=== PATIENT | male | born 1970 | race Caucasian/White ===

== ENCOUNTER 2023-09-01 18:04 | Emergency (ER) | payer MEDICAID, SELFPAY ==
[2023-09-01 18:00] VITALS: BP 147/88; PULSE 130; RESP 20; TEMP 37.1; O2SAT 100
[2023-09-01 19:13] VITALS: BP 166/106; PULSE 137; RESP 14; TEMP 37.2; O2SAT 97
--- NOTE | 2023-09-01 19:16 | ED.GENADULT ---
HPI - General Adult General Chief complaint: Unspecified Stated complaint: Low back pain, heel pain, toe pain, infected toe Time Seen by Provider: 09/01/23 19:05 History of Present Illness HPI narrative: Patient is a 53-year-old gentleman who presents emergency department with chief complaint of I am burning from the inside out. Patient reports that he was injected with drugs but does not know what drugs he was injected with the patient was brought in by EMS the patient denies suicidal or homicidal ideation reports that he does not want anything other than some marijuana and wants a cold shower Review of Systems Review of Systems: A 10 system review of systems was completed on the patient and is negative except for what is stated in the HPI. Nursing and ancillary documentation was reviewed. Exam Narrative: GENERAL: anxious, well-nourished, and in no acute distress. HEAD: Normocephalic, atraumatic. EYES: PERRLA and EOMI. ENT: Nares clear, no rhinorrhea or epistaxis. Mucous membranes moist. NECK: Supple. CHEST: Clear to auscultation. No respiratory distress. HEART: tachycardic rate and rhythm. No murmur heard. Normal peripheral pulses. ABDOMEN: Soft, nontender, nondistended, normal active bowel sounds. EXTREMITIES: Normal range of motion. No edema. SKIN: Warm, dry, no rash. NEURO: No focal deficits. Alert and oriented x3. denies suicidal or homicidal ideation ambulates with a stable gait PSYCH: anxious mood and affect. Course Vital Signs Vital signs: Vital Signs Temperature 37.1 C 09/01/23 18:00 Pulse Rate 130 H 09/01/23 18:00 Respiratory Rate 20 09/01/23 18:00 Blood Pressure 147/88 H 09/01/23 18:00 Pulse Oximetry 100 09/01/23 18:00 Oxygen Delivery Room Air 09/01/23 18:00 Temperature 37.2 C 09/01/23 19:13 Pulse Rate 137 H 09/01/23 19:13 Respiratory Rate 14 09/01/23 19:13 Blood Pressure 166/106 H 09/01/23 19:13 Pulse Oximetry 97 09/01/23 19:13 Oxygen Delivery Room Air 09/01/23 18:00 Medical Decision Making [facility] Narrative Medical decision making narrative: differential diagnosis includes substance abuse, psychiatric disease, patient was offered medical screening exam to determine there is no emergency medical condition present. Patient currently is alert and oriented x4 reporting no thoughts of harm to self or others patient this time has chosen to refuse medical screening exam and will leave against medical advice Vital Signs Vital Signs: Vital Signs Temperature 37.1 C 09/01/23 18:00 Pulse Rate 130 H 09/01/23 18:00 Respiratory Rate 20 09/01/23 18:00 Blood Pressure 147/88 H 09/01/23 18:00 Pulse Oximetry 100 09/01/23 18:00 Oxygen Delivery Room Air 09/01/23 18:00 Temperature 37.2 C 09/01/23 19:13 Pulse Rate 137 H 09/01/23 19:13 Respiratory Rate 14 09/01/23 19:13 Blood Pressure 166/106 H 09/01/23 19:13 Pulse Oximetry 97 09/01/23 19:13 Oxygen Delivery Room Air 09/01/23 18:00 Discharge Plan Discharge Clinical Impression: Substance abuse Patient Disposition: Left Against Medical Advice Condition: Stable Follow-up/Referrals: Ariel,Chirag Wu MD [Primary Care Provider] - Time of Disposition: 19:20
--- NOTE | 2023-09-01 19:21 | PC.NURSE ---
in room with edp. pt is refusing to answer edp questions, uncooperative at this time. pt states he needs to leave and is refusing to be assessed by edp. pt pulling of monitor leads and refusing to keep them on. pt agrees to sign AMA paperwork, stating he does not want to stay.
== END 2023-09-01 19:20 | disposition left against medical advice (07) ==
PROVIDERS: Emergency Provider Emergency Medicine; PCP Orthopaedic Surgery Orthopaedic Trauma
DX: F19.10 Other psychoactive substance abuse, uncomplicated (principal)
CPT/HCPCS: 99281

== ENCOUNTER 2023-09-02 00:46 | Inpatient (IN) | payer MEDICAID, SELFPAY ==
[2023-09-02] VITALS (14 sets, daily range): BP systolic 111–147; BP diastolic 68–120; PULSE 68–112; RESP 12–20; TEMP 36.1–36.5; O2SAT 95–100; BMI 31.1
--- NOTE | ~2023-09-02 | XR_ITS ---
Left foot Technique: AP, oblique, and lateral views were obtained. Clinical History: Posterior heel wound Findings: No acute fracture or dislocation is seen. Osseous alignment is anatomic. Joint spaces are p reserved without erosive or degenerative change. Soft tissues are unremarkable. Impression: Unremarkable left foot radiographs. Reviewed, dictated and finalized at [facility]. Impression: Unremarkable left foot radiographs.
--- NOTE | ~2023-09-02 | CT_ITS ---
Non-contrast Head CT History: Altered mental status Technique: Axial non-contrast imaging of the brain was performed. Dose reduction technique was used on this scan by utilizing automated exposure control and iterative reconstruction technique. The dose -length product (DLP) was 681.00 mGy-cm. Findings: There is no evidence of intracranial hemorrhage, mass lesion, or acute infarct. Brain par enchyma appears normal. The ventricles and subarachnoid spaces are normal in size. The calvarium ap pears normal. The visualized paranasal sinuses and mastoid air cells are clear. Impression: No significant abnormality seen. Reviewed, dictated and finalized at location . Impression: No significant abnormality seen.
--- NOTE | ~2023-09-02 | XR_ITS ---
Portable chest x-ray Comparison: None Clinical History: Altered mental status Findings: There is central congestive change and associated mild minimal pulmonary edema pattern. C ardiomediastinal silhouette is mildly prominent, possibly due to AP technique. Bones and soft tissues are unremarkable. Impression: Central congestive change and minimal pulmonary edema pattern. Reviewed, dictated and finalized at [facility]. Impression: Central congestive change and minimal pulmonary edema pattern.
--- NOTE | 2023-09-02 00:56 | ED.GENADULT ---
HPI - General Adult General Chief complaint: Wound/Laceration Stated complaint: wound to ankle Time Seen by Provider: 09/02/23 00:56 History of Present Illness HPI narrative: 53-year-old male presents to the emergency department via EMS for wounds to his feet and concerns that he might . Patient was seen in our emergency department earlier today for burning from the inside out. Stated that he was injected with drugs with not know which drugs he was injected with. He left against medical advice after not wanting any treatment. He reports again today because he states he does not want to and he does not want to see an christopher. When I asked him if there is anything medically wrong, he says that his feet are rotting. He does have sores to his feet but is unable to tell me how long they have been there. He denies past medical history or alcohol use. He admits to using marijuana and ICE but is unable to tell me his last use. Denies fever, n/v, SI and HI. Just after gathering the prior information, patient spontaneously stopped answering questions and became tearful. He remained alert and tracking his eyes however was refusing to speak and answer questions. Related Data Allergies Allergy/AdvReac Type Severity Reaction Status Date / Time No Known Allergies Allergy Verified 09/02/23 02:51 Review of Systems Review of Systems: ROS unobtainable: Yes unobtainable due to mental status Exam Narrative: GENERAL: Well-appearing, well-nourished, and in no acute distress. HEAD: Normocephalic, atraumatic. EYES: PERRLA and EOMI. ENT: Nares clear, no rhinorrhea or epistaxis. Mucous membranes moist. NECK: Supple. CHEST: Clear to auscultation. No respiratory distress. HEART: Regular rate and rhythm. No murmur heard. Normal peripheral pulses. ABDOMEN: Soft, nontender, nondistended, normal active bowel sounds. EXTREMITIES: Normal range of motion. No edema. SKIN: Approximately 1.5 cm annular ulceration to the left medial foot with a purulent base and surrounding warmth and erythema. Few superficial ulcerations with erythema overlying the right Achilles tendon, no drainage. NEURO: No focal deficits. Moving all extremities spontaneously PSYCH: Clinically intoxicated, uncooperative, tearful. During history taking, spontaneously stopped responding. He remains awake and tracking with his eyes. Denies SI or HI. Course Vital Signs Vital signs: Vital Signs Temperature 36.4 C 09/02/23 00:47 Pulse Rate 112 H 09/02/23 00:47 Respiratory Rate 18 09/02/23 00:47 Blood Pressure 147/120 H 09/02/23 00:47 Pulse Oximetry 100 09/02/23 00:47 Oxygen Delivery Room Air 09/02/23 00:47 Temperature 36.4 C 09/02/23 00:47 Pulse Rate 73 09/02/23 02:58 Respiratory Rate 12 09/02/23 02:58 Blood Pressure 125/87 09/02/23 02:44 Pulse Oximetry 100 09/02/23 02:58 Oxygen Delivery Room Air 09/02/23 00:47 Medical Decision Making MDM Narrative Medical decision making narrative: 53-year-old male presents to the emergency department via EMS for concerns of not wanting to and ?rotting feet?. During history taking, patient spontaneously stopped answering questions, became tearful and uncooperative. He remained alert and tracking with his eyes. He would not answer questions including orientation questions. I could not evaluate patient's mental status, and therefore he could not refuse care. Altered mental status workup initiated. Exam is also concerning for infected ulceration to the right medial foot. CBC with leukocytosis of 11.9. Chemistries remarkable for potassium of 3.2, no other electrolyte derangements. Phos and Mag are normal. Potassium intravenously repleted. CK is elevated to 2426 with elevations in AST and ALT consistent with rhabdomyolysis. UA with trace ketones. TSH within normal limits. Lactic acid normal. ETOH level less than 10. EKG reveals sinus rhythm without ischemic changes. Troponin undetectabl
--- NOTE | 2023-09-02 01:15 | ECG_ITS ---
SEE SCANNED COPY FOR CONFIRMED REPORT MTDD
[2023-09-02 01:35] LABS: Basophils Absolute Auto 0.1 K/mm3 (0.0-0.1); Basophils Percent Auto 0.5 % (0.2-1.2); Eosinophils Absolute Auto 0.1 K/mm3 (0-0.3); Eosinophils Percent Auto 0.5 % (0-4.4); Hematocrit 39.3 % (42.0-52.0); Immature Granulocyte Absolute 0.03 K/mm3 (0.00-0.031); Immature Granulocyte Percent A 0.3 % (0-0.5); Lymphocytes Absolute Auto 2.53 K/mm3 (0.9-3.2); Lymphocytes Percent Auto 21.2 % (18.3-44.2); Mean Corpuscular HGB Conc 33.1 g/dl (32-36); Mean Corpuscular Hemoglobin 31.6 pg (26-34); Mean Corpuscular Volume 95.6 fl (80-100); Mean Platelet Volume 9.2 fl (7.4-10.4); Monocytes Absolute Auto 1.3 K/mm3 (0.1-0.6); Monocytes Percent Auto 11.2 % (2.6-8.5); Neutrophils Absolute Auto 7.9 K/mm3 (1.3-6.7); Neutrophils Percent Auto 66.3 % (45.5-73.1); Platelet Count Result 312 k/mm3 (150-375); Red Blood Count 4.11 M/mm3 (4.6-6.20); Red Cell Distribution Width 12.6 % (11.5-14.5); White Blood Count 11.9 K/mm3 (4.5-10.0)
[2023-09-02 01:44] LABS: Acetaminophen < 10 ug/mL (10-30); Ethanol < 10 mg/dL (<10); Salicylate < 1.0 mg/dL (2-20)
[2023-09-02 01:46] LABS: INR 1.1; Prothrombin Time 14.8 Seconds (11.1-14.7)
[2023-09-02 01:47] LABS: Partial Thromboplastin Time 34.9 Seconds (22.3-36.8)
[2023-09-02 02:01] LABS: Alanine Aminotransferase 63 U/L (6-50); Albumin Level 4.5 g/dL (3.5-5.1); Alkaline Phosphatase 61 U/L (38-126); Anion Gap 11 mmol/L (4-12); Aspartate Amino Transferase 86 U/L (17-59); Bilirubin,Total 1.5 mg/dL (0.2-1.3); Blood Urea Nitrogen 23 mg/dL (9-20); Calcium 9.7 mg/dL (8.4-10.2); Carbon Dioxide 25 mmol/L (22-30); Chloride 105 mmol/L (98-107); Estimated Glomerular Filt Rate > 60; Glucose 122 mg/dL (65-110); Potassium 3.2 mmol/L (3.4-5.0); Sodium 141 mmol/L (137-145); Troponin I < 0.012 ng/mL (0.000-0.034)
[2023-09-02 02:14] LABS: Creatine Kinase 2426 U/L (55-170)
[2023-09-02 02:19] LABS: Thyroid Stimulating Hormone 0.962 uIU/mL (0.465-4.680)
[2023-09-02 02:25] LABS: Appearance Urine Clear (Clear); Bacteria Urine None Seen /hpf; Bilirubin Urine Negative (Negative); Blood Urine Negative (Negative); Color Urine Dark Yellow (Yellow); Glucose Urine UA Negative (Negative); Ketones Urine Trace mg/dL (Negative); Leukocyte Esterase Ur Negative LEU/UL (Negative); Nitrate Urine Negative (Negative); Non Pathogenic Casts 0-2; Protein Urine 1+ mg/dL (Negative); RBC Urine 0-2 /hpf (0-2); Squamous Epithelial Cell Urine None Seen /hpf (Few); WBC Urine 0-5 /hpf (0-3); pH Urine 5.5 (5.0-9.0)
[2023-09-02] MEDS: SODIUM CHLORIDE 0.9% IV 1,000 ML 999 ML IV CONT ×3 (02:26→04:21)
[2023-09-02 02:31] LABS: Add Urine Microscopic? YES; Specific Grav Ur 1.034 (1.001-1.035)
[2023-09-02 02:32] LABS: Magnesium 2.2 mg/dL (1.6-2.3); Phosphorus 3.2 mg/dL (2.5-4.5)
[2023-09-02 02:36] LABS: Barbiturate Screen Urine Negative (Negative)
[2023-09-02] MEDS: PIPERACILLN/TAZ 3.375GM/NS50ML 3.375 GM/50 ML BAG IVPB ×4 (02:52→20:27)
[2023-09-02 02:55] LABS: Cannabinoid Screen Urine Positive (Negative); Cocaine Screen Urine Negative (Negative); Methadone Screen Urine Negative (Negative); Opiate Screen Urine Negative (Negative); Phencyclidine Screen Urine Negative (Negative)
[2023-09-02 03:04] LABS: Benzodiazepines Screen Urine Negative (Negative)
[2023-09-02 03:05] LABS: Amphetamine Screen Urine Positive (Negative)
[2023-09-02] MEDS: KCL 20 MEQ/SW 100 ML 100 ML 50 MEQ IVPB (03:08)
--- NOTE | 2023-09-02 04:04 | PM.IMHP ---
H&P: HPI History of Present Illness Date/Time: 09/02/23 04:04 Chief Complaint: wound Narrative: This is a 53-year-old male with past medical history significant for use of methamphetamines patient presented to the emergency room stating that his feet were rotting after initial presentation left AMA to come back later patient is belligerent and does not answer questions. it is noted the patient did a heavy load of methamphetamine prior to presentation to emergency room. Preliminary workup was significant for an elevated CK.Patient has been placed in observation for further evaluation management and treatment. Non-contrast Head CT History: Altered mental status Technique:? Axial non-contrast imaging of the brain was performed. Dose reduction technique was used on this scan by utilizing automated exposure control and iterative reconstruction technique. The dose-length product (DLP) was 681.00 mGy-cm. Findings:? There is no evidence of intracranial hemorrhage, mass lesion, or acute infarct.? Brain parenchyma appears normal.? The ventricles and subarachnoid spaces are normal in size.? The calvarium appears normal.? The visualized paranasal sinuses and mastoid air cells are clear. Impression: No significant abnormality seen. Portable chest x-ray Comparison: None Clinical History: Altered mental status Findings:? There is central congestive change and associated mild minimal pulmonary edema pattern.? Cardiomediastinal silhouette is mildly prominent, possibly due to AP technique. Bones and soft tissues are unremarkable. ? Impression: ? Central congestive change and minimal pulmonary edema pattern. Left foot Technique: AP, oblique, and lateral views were obtained. Clinical History: Posterior heel wound Findings: No acute fracture or dislocation is seen. Osseous alignment is anatomic. Joint spaces are preserved without erosive or degenerative change. Soft tissues are unremarkable. Impression: Unremarkable left foot radiographs. Review of Systems Review of Systems: ROS unobtainable: Yes other ( patient refuses to answer questions) [facility] Social History Social History Smoking status: Current every day smoker Tobacco type: cigarettes Alcohol intake: former Substance use type: marijuana, amphetamines and painkillers Do You Feel Safe in your Home?: No Lack of Transportation: YES Lack of Food: Often True Current Housing: I Do Not Have Housing Concerned About Future Housing: YES Difficulty Paying Gas/Electric Bills: YES Difficulty Paying for Meds: YES Currently Unemployed: YES Education: High School Diploma/GED Difficulty w/ Childcare or Family Care: No Spiritual care concerns: No Meds Home Medications and Allergies Home Medications Medication Instructions Recorded Confirmed Type No Home Medications 09/02/23 09/02/23 History Allergies Allergy/AdvReac Type Severity Reaction Status Date / Time No Known Allergies Allergy Verified 09/02/23 02:51 Vital Signs Vital Signs - 24 hr 09/02/23 00:47 09/02/23 02:23 09/02/23 02:44 Temperature 97.6 F Pulse Rate 112 H 91 Respiratory Rate 18 12 Blood Pressure 147/120 H 125/87 Pulse Oximetry 100 95 Oxygen Delivery Room Air 09/02/23 02:58 Temperature Pulse Rate 73 Respiratory Rate 12 Blood Pressure Pulse Oximetry 100 Oxygen Delivery Exam Narrative: patient is laying in a stretcher Const: General: comfortable, no acute distress, well developed, average body habitus and other ( patient refuses to answer questions his seems to be sleeping) Nutritional Appearance: average body habitus HENMT: Head: normal to inspection, normocephalic and atraumatic Ears: hearing grossly normal bilaterally Face/Nose/Sinus: normal facial exam Face and sinus: normal facial exam Eyes: General: appearance normal, both eyes and all related stru
[2023-09-02] MEDS: SODIUM CHLORIDE 0.9% IV 1,000 ML 125 ML IV CONT ×2 (05:09→18:33)
--- NOTE | 2023-09-02 05:09 | ADMGEN ---
This patient, Neo Storey, was admitted to Medical Room 259-01. Patient/family oriented to hospital policies and general routines including ID bracelet, bed and alarms, visiting hours, pain management, procedures, bathroom and other care routines, personal items, smoking policy, room service/diet, and visiting hours. Information on how to activate the Rapid Response Team has been discussed. Patient/Family are encouraged to report perceived risks to care and to ask questions if they do not understand what they are told or what they should do.
--- NOTE | 2023-09-02 06:06 | PC.NURSE ---
went through patient belongings with rn house supervisor and security. pint of fireball whiskey, utility tool, pack of naomi cigs, ozone infused THC cartridges comfiscated and given to security to store until patient discharged.
[2023-09-02 06:25] LABS: Basophils Percent Auto 0.5 % (0.2-1.2); Eosinophils Absolute Auto 0.1 K/mm3 (0-0.3); Eosinophils Percent Auto 0.7 % (0-4.4); Hematocrit 35.4 % (42.0-52.0); Hemoglobin 11.5 g/dL (14.0-18.0); Immature Granulocyte Absolute 0.03 K/mm3 (0.00-0.031); Immature Granulocyte Percent A 0.4 % (0-0.5); Lymphocytes Absolute Auto 1.82 K/mm3 (0.9-3.2); Lymphocytes Percent Auto 22.5 % (18.3-44.2); Mean Corpuscular HGB Conc 32.5 g/dl (32-36); Mean Corpuscular Hemoglobin 31.6 pg (26-34); Mean Corpuscular Volume 97.3 fl (80-100); Mean Platelet Volume 9.1 fl (7.4-10.4); Monocytes Absolute Auto 0.9 K/mm3 (0.1-0.6); Monocytes Percent Auto 11.3 % (2.6-8.5); Neutrophils Absolute Auto 5.2 K/mm3 (1.3-6.7); Neutrophils Percent Auto 64.6 % (45.5-73.1); Platelet Count Result 250 k/mm3 (150-375); Red Blood Count 3.64 M/mm3 (4.6-6.20); Red Cell Distribution Width 12.7 % (11.5-14.5); White Blood Count 8.1 K/mm3 (4.5-10.0)
[2023-09-02 06:35] LABS: Alanine Aminotransferase 49 U/L (6-50); Albumin Level 3.6 g/dL (3.5-5.1); Alkaline Phosphatase 48 U/L (38-126); Anion Gap 5 mmol/L (4-12); Aspartate Amino Transferase 64 U/L (17-59); Bilirubin,Total 1.3 mg/dL (0.2-1.3); Blood Urea Nitrogen 19 mg/dL (9-20); Calcium 8.6 mg/dL (8.4-10.2); Carbon Dioxide 26 mmol/L (22-30); Chloride 109 mmol/L (98-107); Estimated CRCL calculation 124 ml/min; Estimated Glomerular Filt Rate > 60; Glucose 112 mg/dL (65-110); Potassium 3.5 mmol/L (3.4-5.0); Sodium 140 mmol/L (137-145)
[2023-09-02 06:40] LABS: Creatine Kinase 1222 U/L (55-170)
--- NOTE | 2023-09-02 08:43 | PM.IMPN ---
Progress Note: A&P Assessment and Plan (1) Methamphetamine abuse: Code(s): F15.10 - Other stimulant abuse, uncomplicated Status: Acute Assessment and Plan: supportive care unsure last time he used meth- states it was only little bit discussed with home health care physician- will need rehab info but not interested in this at this time (2) Rhabdomyolysis: Code(s): M62.82 - Rhabdomyolysis Status: Acute Assessment and Plan: IV fluids continue to monitor CK down trending (3) Cellulitis of foot, left: Code(s): L03.116 - Cellulitis of left lower limb Status: Acute Assessment and Plan: started on Zosyn IV-continue blood culture, wound culture pending wound consult placed prior keep wound clean-follow wound consult recommendations out of bed to reduce friction while in bed Acetaminophen prn -elevate shannan extremities while in bed (4) Hypokalemia: Code(s): E87.6 - Hypokalemia Status: Acute Assessment and Plan: replaced with iv k in ed repeat K 3.5 - trend cmp (5) Tobacco abuse: Code(s): Z72.0 - Tobacco use Status: Acute Assessment and Plan: will order nicotine patch PRN (6) Elevated liver enzymes: Code(s): R74.8 - Abnormal levels of other serum enzymes Status: Acute Assessment and Plan: -ALT back to normal, AST trending down - monitor Time Spent With Patient Time with patient: 15 - 25 minutes Subjective Date/time seen: 09/02/23 08:43 Interval history: 53-year-old male admitted from emergency department via EMS for concerns of not wanting to and ?rotting feet?.? During history taking, patient spontaneously stopped answering questions, became tearful and uncooperative.? He remained alert and tracking with his eyes.? He would not answer questions including orientation questions. Altered mental status workup initiated.? Exam is also concerning for infected ulceration to the right medial foot. Pt was seen per admitting hospitalist overnight and refused to answer questions per note Review of Systems Eyes: Eyes: Reports no additional eye complaints Cardiovascular: Cardiovascular: Denies chest pain, Denies diaphoresis, Reports pedal edema and Denies leg edema Respiratory: Respiratory: Reports no additional respiratory complaints, Denies chest congestion and Denies cough Gastrointestinal: Gastrointestinal: Denies abdominal pain and Denies melena Musculoskeletal: Comments: shannan heel pain Integumentary/Breasts: Skin/Breast: Reports erythema Comments: wounds to shannan heel x about 1 week Exam Narrative: patient is laying in a stretcher Const: General: comfortable, no acute distress, well developed, average body habitus and other ( patient refuses to answer questions his seems to be sleeping) Nutritional Appearance: average body habitus Other: somewhat hesitant with answers but cooperative and appropriate HENMT: Head: normal to inspection, normocephalic and atraumatic Ears: hearing grossly normal bilaterally Face/Nose/Sinus: normal facial exam Face and sinus: normal facial exam Eyes: General: appearance normal, both eyes and all related structures Pupils: Equal, round and reactive pupils present EOM: EOMs intact bilaterally Neck: Neck: full ROM, no lymphadenopathy and no JVD Resp: Effort & Inspection: normal respiratory effort and able to speak in complete sentences Auscultation: clear to auscultation bilaterally Cardio: Jugular venous distension: no JVD Rate: regular rate Rhythm: regular rhythm Heart sounds: S1 normal heart sound present and S2 normal heart sound present GI: GI Palp: Yes Soft to palpation, No Tenderness to palpation present (GI) and No Guarding due to palpation present (GI) Auscultation: normal bowel sounds : General: Yes deferred Skin: General skin exam: wounds noted ( bilateral heels friction burn) Rashes: no rashes Wounds: wounds noted ( bilatera
[2023-09-02] MEDS: ACETAMINOPHEN 325 MG TABLET 650 MG PO ×2 (16:18→23:11)
[2023-09-02] MEDS: NICOTINE (*PBKC) 14 MG PATCH 1 PATCH TRANSDERM (16:18)
[2023-09-03] VITALS (8 sets, daily range): BP systolic 123–128; BP diastolic 79–88; PULSE 80–98; RESP 14–20; TEMP 36.5–36.8; O2SAT 99–100
[2023-09-03] MEDS: PIPERACILLN/TAZ 3.375GM/NS50ML 3.375 GM/50 ML BAG IVPB ×4 (03:07→20:35)
[2023-09-03] MEDS: SODIUM CHLORIDE 0.9% IV 1,000 ML 125 ML IV CONT ×3 (03:07→20:35)
--- NOTE | 2023-09-03 08:09 | PM.IMPN ---
Progress Note: A&P Assessment and Plan (1) Cellulitis of foot, left: Code(s): L03.116 - Cellulitis of left lower limb Status: Acute Assessment and Plan: started on Zosyn IV-continue blood culture NGTD wound culture gram positive cocci in clusters concerning for staph wound consult placed prior MRSA negative keep wound clean-follow wound consult recommendations out of bed to reduce friction while in bed Acetaminophen prn -elevate bilateral extremities while in bed (2) Rhabdomyolysis: Code(s): M62.82 - Rhabdomyolysis Status: Acute Assessment and Plan: CK 2436 on arrival. Now 434. - IV fluids - Monitor kidney function and electrolyte imbalances - I/O (3) Methamphetamine abuse: Code(s): F15.10 - Other stimulant abuse, uncomplicated Status: Acute Assessment and Plan: UDS positive for amphetamine and cannabinoids. Patient states that prior to retirement he was using IV amphetamines, but has since been snorting small amounts . He takes the amphetamine with cannabis to calm him down. He states his drug use has caused him to lose several jobs and is severely impacts his life. He is interested in quitting at this time. Previously underwent rehab at the [facility]. - Supportive care - Patient interested in rehab resources. Resources to be given per care coordination. (4) Elevated liver enzymes: Code(s): R74.8 - Abnormal levels of other serum enzymes Status: Acute Assessment and Plan: Liver enzymes elevated on arrival. Hepatitis panel ordered given patients IV drug history. - LFTs WNL - monitor (5) Tobacco abuse: Code(s): Z72.0 - Tobacco use Status: Acute Assessment and Plan: Nicotine patch ordered PRN Time Spent With Patient Time with patient: 25 - 35 minutes Subjective Date/time seen: 09/03/23 08:09 Interval history: 53 year old male with past medical history of IV drug use and current amphetamine abuse presents to the hospital for lower extremity cellulitis. Patient has right lower extremity with 3+ edema to foot and ankle with large open wound to the great toe without noted drainage or odor. Left lower extremity with 3+ edema to the foot, ankle and calf and a open wound with serosanguineous drainage to the medial aspect of the heel. No tenderness or warmth to palpation. Wound culture revealed gram positive cocci in clusters concerning for staph. Blood cultures NGTD. MRSA negative. Patient remains on zosyn. Upon admission patient found to be in rhabdomyolysis with a CK of 2426. CK now downtrending to 434. Patient remains on IV fluids. Discussed drug abuse history with patient and he states that prior to retirement he was using IV amphetamines. He then went to retirement for a time and was clean for a few months before he started to snort small amounts of amphetamines. He notes that he smokes cannabis was well to calm him down from the amphetamine high. Had an extensive conversation with patient about drug cessation and he states interest in rehab resources. He notes that he has tried rehab in the past at the [facility] with some success. Review of Systems Review of Systems: All systems reviewed & are unremarkable except as noted in HPI and below Exam Narrative: AF HR 80 RR 14 SpO2 100 BP 128/88 General: male in no acute respiratory distress who is nontoxic appearing, lying semi recumbent in bed. HEENT: Normocephalic. Atraumatic. Pupils equal round reactive to light. Extraocular movement intact. Sclera clear and anicteric. No facial asymmetry. Chest: Lungs are clear to auscultation bilaterally. No wheezes or crackles. CV: Heart was regular rate and rhythm. S1/S2. No murmurs, gallops, or rubs. Abd: Abdomen was soft. Nontender. Nondistended. Positive bowel sounds. No organomegaly or masses. Ext: No clubbing, cyanosis. 2+ DP pulses bilaterally. Neuro: Patient is alert and oriented x4. Speech is clear. Psych: Normal mood and affect. Des
[2023-09-03 08:23] LABS: Basophils Percent Auto 0.8 % (0.2-1.2); Eosinophils Absolute Auto 0.2 K/mm3 (0-0.3); Eosinophils Percent Auto 3.1 % (0-4.4); Hematocrit 35.7 % (42.0-52.0); Hemoglobin 11.7 g/dL (14.0-18.0); Immature Granulocyte Absolute 0.01 K/mm3 (0.00-0.031); Immature Granulocyte Percent A 0.2 % (0-0.5); Lymphocytes Absolute Auto 1.52 K/mm3 (0.9-3.2); Lymphocytes Percent Auto 29.8 % (18.3-44.2); Mean Corpuscular HGB Conc 32.8 g/dl (32-36); Mean Corpuscular Volume 97.5 fl (80-100); Mean Platelet Volume 9.1 fl (7.4-10.4); Monocytes Absolute Auto 0.5 K/mm3 (0.1-0.6); Monocytes Percent Auto 9.4 % (2.6-8.5); Neutrophils Absolute Auto 2.9 K/mm3 (1.3-6.7); Neutrophils Percent Auto 56.7 % (45.5-73.1); Platelet Count Result 287 k/mm3 (150-375); Red Blood Count 3.66 M/mm3 (4.6-6.20); White Blood Count 5.1 K/mm3 (4.5-10.0)
[2023-09-03 08:39] LABS: Alanine Aminotransferase 43 U/L (6-50); Albumin Level 3.5 g/dL (3.5-5.1); Alkaline Phosphatase 45 U/L (38-126); Anion Gap 5 mmol/L (4-12); Aspartate Amino Transferase 37 U/L (17-59); Bilirubin,Total 0.6 mg/dL (0.2-1.3); Blood Urea Nitrogen 9 mg/dL (9-20); Calcium 8.7 mg/dL (8.4-10.2); Carbon Dioxide 25 mmol/L (22-30); Chloride 111 mmol/L (98-107); Estimated CRCL calculation 124 ml/min; Estimated Glomerular Filt Rate > 60; Glucose 107 mg/dL (65-110); Potassium 4.1 mmol/L (3.4-5.0); Sodium 141 mmol/L (137-145)
[2023-09-03] MEDS: NICOTINE (*PBKC) 14 MG PATCH 1 PATCH TRANSDERM (09:28)
[2023-09-03] MEDS: ACETAMINOPHEN 325 MG TABLET 650 MG PO ×2 (09:34→20:40)
[2023-09-03 09:38] LABS: Creatine Kinase 434 U/L (55-170)
[2023-09-04] VITALS (9 sets, daily range): BP systolic 106–131; BP diastolic 58–75; PULSE 64–106; RESP 16–26; TEMP 36.6–37.1; O2SAT 91–99
[2023-09-04] MEDS: PIPERACILLN/TAZ 3.375GM/NS50ML 3.375 GM/50 ML BAG IVPB ×4 (02:29→20:56)
[2023-09-04 04:16] LABS: Basophils Absolute Auto 0.1 K/mm3 (0.0-0.1); Eosinophils Absolute Auto 0.2 K/mm3 (0-0.3); Eosinophils Percent Auto 3.6 % (0-4.4); Hematocrit 36.8 % (42.0-52.0); Hemoglobin 11.8 g/dL (14.0-18.0); Immature Granulocyte Absolute 0.01 K/mm3 (0.00-0.031); Immature Granulocyte Percent A 0.1 % (0-0.5); Lymphocytes Absolute Auto 2.76 K/mm3 (0.9-3.2); Lymphocytes Percent Auto 41.1 % (18.3-44.2); Mean Corpuscular HGB Conc 32.1 g/dl (32-36); Mean Corpuscular Hemoglobin 31.6 pg (26-34); Mean Corpuscular Volume 98.7 fl (80-100); Mean Platelet Volume 9.4 fl (7.4-10.4); Monocytes Absolute Auto 0.6 K/mm3 (0.1-0.6); Monocytes Percent Auto 9.4 % (2.6-8.5); Neutrophils Percent Auto 44.8 % (45.5-73.1); Platelet Count Result 332 k/mm3 (150-375); Red Blood Count 3.73 M/mm3 (4.6-6.20); Red Cell Distribution Width 12.8 % (11.5-14.5); White Blood Count 6.7 K/mm3 (4.5-10.0)
[2023-09-04 04:40] LABS: Alanine Aminotransferase 37 U/L (6-50); Albumin Level 3.6 g/dL (3.5-5.1); Alkaline Phosphatase 39 U/L (38-126); Anion Gap 7 mmol/L (4-12); Aspartate Amino Transferase 31 U/L (17-59); Bilirubin,Total 0.5 mg/dL (0.2-1.3); Blood Urea Nitrogen 8 mg/dL (9-20); Calcium 8.5 mg/dL (8.4-10.2); Carbon Dioxide 23 mmol/L (22-30); Chloride 111 mmol/L (98-107); Creatine Kinase 237 U/L (55-170); Estimated CRCL calculation 124 ml/min; Estimated Glomerular Filt Rate > 60; Glucose 116 mg/dL (65-110); Potassium 3.7 mmol/L (3.4-5.0); Sodium 141 mmol/L (137-145)
[2023-09-04 05:18] LABS: Hepatitis C Virus Antibody Negative (Negative)
[2023-09-04 05:47] LABS: HAV RESULT Negative (Negative); Hepatitis B Surface Antigen Negative (Negative)
[2023-09-04 05:48] LABS: Hepatitis B Core IgM Result Negative (Negative)
--- NOTE | 2023-09-04 07:18 | PM.IMPN ---
Progress Note: A&P Assessment and Plan (1) Cellulitis of foot, left: Code(s): L03.116 - Cellulitis of left lower limb Status: Acute Assessment and Plan: on Zosyn IV-continue blood culture NGTD wound culture gram positive cocci in clusters concerning for staph - will add doxy for now awaiting sensitivities report wound consult placed prior MRSA swab negative keep wound clean-follow wound consult recommendations out of bed to reduce friction while in bed Acetaminophen prn -elevate bilateral extremities while in bed (2) Rhabdomyolysis: Code(s): M62.82 - Rhabdomyolysis Status: Acute Assessment and Plan: CK 2436 on arrival. Now 237. - IV fluids - Monitor kidney function and electrolyte imbalances - I/O (3) Methamphetamine abuse: Code(s): F15.10 - Other stimulant abuse, uncomplicated Status: Acute Assessment and Plan: UDS positive for amphetamine and cannabinoids. Previously underwent rehab at the [facility]. - Supportive care - Patient interested in rehab resources. Resources to be given per care coordination. (4) Elevated liver enzymes: Code(s): R74.8 - Abnormal levels of other serum enzymes Status: Acute Assessment and Plan: - Hepatitis panel WNL - LFTs WNL - monitor (5) Tobacco abuse: Code(s): Z72.0 - Tobacco use Status: Acute Assessment and Plan: Nicotine patch ordered PRN (6) Insomnia: Code(s): G47.00 - Insomnia, unspecified Status: Acute Assessment and Plan: used to take trazadone 50 mg with help - will order Plan GI prophylaxis: n/a DVT prophylaxis: lovenox Lines: peripheral IV Code: FULL code Dispo: homeless-working with care coordination for rehab f/u Time Spent With Patient Time with patient: 25 - 35 minutes Subjective Date/time seen: 09/04/23 07:18 Interval history: 53 year old male with past medical history of IV drug use and current amphetamine abuse presents to the hospital for lower extremity cellulitis. Patient has right lower extremity with 3+ edema to foot and ankle with large open wound to the great toe without noted drainage or odor. Left lower extremity with 3+ edema to the foot, ankle and calf and a open wound with serosanguineous drainage to the medial aspect of the heel. No tenderness or warmth to palpation. Wound culture revealed gram positive cocci in clusters concerning for staph. Blood cultures NGTD. MRSA negative. Patient remains on zosyn. Upon admission patient found to be in rhabdomyolysis with a CK of 2426. CK now downtrending to 434. Patient remains on IV fluids. Discussed drug abuse history with patient and he states that prior to [facility] he was using IV amphetamines. He then went to [facility] for a time and was clean for a few months before he started to snort small amounts of amphetamines. He notes that he smokes cannabis was well to calm him down from the amphetamine high. Had an extensive conversation with patient about drug cessation and he states interest in rehab resources. He notes that he has tried rehab in the past at the [facility] with some success. 09/03- hep panel ordered-negative. Wound culture prelim- gram positive cocci-heavy growth of Staph aureus- susceptability report to to follow. Added doxy until sensitivities resulted. Doing well- more talkative, agreeable to drug rehab once discharged-continuum of care manager helping with resources Review of Systems Review of Systems: All systems reviewed & are unremarkable except as noted in HPI and below Eyes: Eyes: Reports no additional eye complaints Cardiovascular: Cardiovascular: Denies chest pain, Denies diaphoresis, Reports pedal edema and Denies leg edema Comments: swelling improved today Respiratory: Respiratory: Reports no additional respiratory complaints, Denies chest congestion and Denies cough Gastrointestinal: Gastrointestinal: Denies abdominal pain and Denies melena Genitourinary: Genitour
[2023-09-04] MEDS: ENOXAPARIN 40 MG/0.4 ML SYRINGE SUB-Q (09:51)
[2023-09-04] MEDS: NICOTINE (*PBKC) 14 MG PATCH 1 PATCH TRANSDERM (09:52)
[2023-09-04] MEDS: DOXYCYCLINE HYCLATE 100 MG TABLET PO ×2 (12:16→20:57)
[2023-09-04] MEDS: ACETAMINOPHEN 325 MG TABLET 650 MG PO ×2 (12:17→20:57)
[2023-09-04] MEDS: SODIUM CHLORIDE 0.9% IV 1,000 ML 125 ML IV CONT (12:17)
[2023-09-04] MEDS: traZODone HCL 50 MG TABLET PO (20:57)
[2023-09-05] VITALS: PULSE 79
[2023-09-05] MEDS: PIPERACILLN/TAZ 3.375GM/NS50ML 3.375 GM/50 ML BAG IVPB ×2 (02:54→09:40)
[2023-09-05] MEDS: SODIUM CHLORIDE 0.9% IV 1,000 ML 125 ML IV CONT (02:56)
[2023-09-05 04:00] VITALS: PULSE 75
[2023-09-05 04:51] LABS: Basophils Absolute Auto 0.1 K/mm3 (0.0-0.1); Basophils Percent Auto 1.2 % (0.2-1.2); Eosinophils Absolute Auto 0.3 K/mm3 (0-0.3); Eosinophils Percent Auto 3.4 % (0-4.4); Hematocrit 36.6 % (42.0-52.0); Hemoglobin 11.6 g/dL (14.0-18.0); Immature Granulocyte Absolute 0.04 K/mm3 (0.00-0.031); Immature Granulocyte Percent A 0.5 % (0-0.5); Lymphocytes Absolute Auto 3.18 K/mm3 (0.9-3.2); Lymphocytes Percent Auto 42.9 % (18.3-44.2); Mean Corpuscular HGB Conc 31.7 g/dl (32-36); Mean Corpuscular Hemoglobin 31.8 pg (26-34); Mean Corpuscular Volume 100.3 fl (80-100); Mean Platelet Volume 9.1 fl (7.4-10.4); Monocytes Absolute Auto 0.7 K/mm3 (0.1-0.6); Monocytes Percent Auto 9.3 % (2.6-8.5); Neutrophils Absolute Auto 3.2 K/mm3 (1.3-6.7); Neutrophils Percent Auto 42.7 % (45.5-73.1); Platelet Count Result 326 k/mm3 (150-375); Red Blood Count 3.65 M/mm3 (4.6-6.20); Red Cell Distribution Width 12.9 % (11.5-14.5); White Blood Count 7.4 K/mm3 (4.5-10.0)
[2023-09-05 05:10] LABS: Alanine Aminotransferase 29 U/L (6-50); Albumin Level 3.2 g/dL (3.5-5.1); Alkaline Phosphatase 46 U/L (38-126); Anion Gap 5 mmol/L (4-12); Aspartate Amino Transferase 20 U/L (17-59); Bilirubin,Total 0.2 mg/dL (0.2-1.3); Blood Urea Nitrogen 11 mg/dL (9-20); Calcium 8.8 mg/dL (8.4-10.2); Carbon Dioxide 24 mmol/L (22-30); Chloride 111 mmol/L (98-107); Creatine Kinase 118 U/L (55-170); Estimated CRCL calculation 111 ml/min; Estimated Glomerular Filt Rate > 60; Glucose 122 mg/dL (65-110); Potassium 3.6 mmol/L (3.4-5.0); Sodium 140 mmol/L (137-145)
[2023-09-05 06:23] VITALS: BP 124/74; PULSE 87; RESP 20; TEMP 36.1; O2SAT 97
[2023-09-05 08:00] VITALS: PULSE 96
[2023-09-05 08:33] VITALS: O2SAT 96
[2023-09-05] MEDS: DOXYCYCLINE HYCLATE 100 MG TABLET PO (09:39)
[2023-09-05] MEDS: NICOTINE (*PBKC) 14 MG PATCH 1 PATCH TRANSDERM (09:39)
[2023-09-05] MEDS: ENOXAPARIN 40 MG/0.4 ML SYRINGE SUB-Q (09:39)
[2023-09-05] MEDS: ACETAMINOPHEN 325 MG TABLET 650 MG PO (09:52)
[2023-09-05] MEDS: CLINDAMYCIN HCL 150 MG CAP 300 MG PO (12:30)
--- NOTE | 2023-09-05 15:07 | PM.DS ---
DS: Admitting Diagnosis Discharge Date 09/05/23 Admitting Diagnosis cellulitis left foot rhabdomyolysis methamphetamine abuse elevated liver enzymes tobacco abuse DS: Discharge Diagnosis Discharge Diagnosis (1) Cellulitis of foot, left: Code(s): L03.116 - Cellulitis of left lower limb Status: Acute (2) Rhabdomyolysis: Code(s): M62.82 - Rhabdomyolysis Status: Acute (3) Methamphetamine abuse: Code(s): F15.10 - Other stimulant abuse, uncomplicated Status: Acute (4) Elevated liver enzymes: Code(s): R74.8 - Abnormal levels of other serum enzymes Status: Acute (5) Tobacco abuse: Code(s): Z72.0 - Tobacco use Status: Acute DS: Summary Hospital Course Reason for hospitalization: cellulitis left foot rhabdomyolysis methamphetamine abuse elevated liver enzymes tobacco abuse Hospital Course: 53 year old male with past medical history of IV drug use and current amphetamine abuse presents to the hospital for lower extremity cellulitis.?Wound culture revealed staph. Blood cultures NGTD. MRSA negative. Patient started on zosyn and doxy. Patient evaluated by wound care. Antibiotics transitioned to clindamycin PO at discharge. Upon admission patient found to be in rhabdomyolysis with a CK of 2426. CK now downtrended to within normal limits. Patients liver enzymes were slightly elevated. A hepatitis panel was negative. Liver enzymes returned to normal limits. UDS was positive for amphetamines and cannabinoids. Discussed drug abuse history with patient and he states that prior to nursing home he was using IV amphetamines. He then went to nursing home for a time and was clean for a few months before he started to snort small amounts of amphetamines. He notes that he smokes cannabis as well to calm him down from the amphetamine high. Had an extensive conversation with patient about drug cessation and he states interest in rehab resources. He notes that he has tried rehab in the past at the [facility] with some success.?He received resources from care coordination prior to discharge. Patient discharged home in a stable condition. He will follow up with his PCP in 1 week and complete his course of clindamycin as prescribed. Time spent discussing smoking cessation with patient: more than 10 minutes Status at Discharge Functional status at discharge: independent ambulation Time Spent with Patient Time attestation: Total time spent providing and/or coordinating discharge services: Time spent: Greater than 30 minutes Exam Narrative: AF HR 87 RR 20 SpO2 97 BP 124/74 General: male in no acute respiratory distress who is nontoxic appearing, sitting on side of bed HEENT: Normocephalic. Atraumatic. Pupils equal round reactive to light. Extraocular movement intact. Sclera clear and anicteric. No facial asymmetry. Chest: Lungs are clear to auscultation bilaterally. No wheezes or crackles. CV: Heart was regular rate and rhythm. S1/S2. No murmurs, gallops, or rubs. Abd: Abdomen was soft. Nontender. Nondistended. Positive bowel sounds. No organomegaly or masses. Ext: No clubbing, cyanosis. 2+ DP pulses bilaterally. Neuro: Patient is alert and oriented x4. Speech is clear. Psych: Normal mood and affect. Patient is pleasant and cooperative. Skin: Warm and dry. Right lower extremity with trivial edema to foot and ankle with large open wound to the great toe without noted drainage or odor. Left lower extremity with 1+ edema to the foot, ankle and calf and wound with serosanguineous drainage to the medial aspect of the heel. No tenderness or warmth to palpation. Dressings applied. DS: Data Data Completed and Pending Completed studies during hospitalization: head ct chest xr foot xr Labs on day of discharge: Labs from last 24 hours 09/05/23 04:38 WBC 7.4 RBC 3.65 L Hgb 11.6 L Hct 36.6 L MCV 100.3 H MCH 31.8 MCHC 31.7 L RDW 12.9 Plt Count 326 MPV 9.1 Immature Gran % (Auto) 0.5
== END 2023-09-05 17:30 | disposition home or self-care (01) | DRG 383 ==
LOC: ANHED 04:26 → ANH2MED 04:42
PROVIDERS: Physician Assistant; Student in an Organized Health Care Education/Training Program; Admitting Provider Internal Medicine; Emergency Provider Emergency Medicine; Visit Provider Family Medicine
DX: L03.116 Cellulitis of left lower limb (principal); B95.61 Methicillin susceptible Staphylococcus aureus infection as the cause of diseases classified elsewhere; F15.10 Other stimulant abuse, uncomplicated; Z59.00 Homelessness unspecified; M62.82 Rhabdomyolysis; R74.8 Abnormal levels of other serum enzymes; F17.210 Nicotine dependence, cigarettes, uncomplicated; L97.529 Non-pressure chronic ulcer of other part of left foot with unspecified severity; E87.6 Hypokalemia; G47.00 Insomnia, unspecified
CPT/HCPCS: 36415; 70450; 71045; 73630; 80053; 80074; 80307; 81001; 82248; 82550; 83605; 83735; 84100; 84443; 84484; 85025; 85610; 85730; 87040; 87070; 87147; 87181; 87205; 93005; 96361; 96365; 96372; 96375; 99285; A9270; G0378; G0379; J1650; J2543; J3480; J7030

== ENCOUNTER 2023-11-23 16:27 | Emergency (ER) | payer BC, SELFPAY ==
[2023-11-23 16:31] VITALS: BP 154/86; PULSE 80; RESP 16; TEMP 36.7; O2SAT 100
--- NOTE | 2023-11-23 19:00 | ED.SKABFB ---
HPI - Skin/Abscess/Foreign Bdy General Chief complaint: Skin/Abscess/Foreign Body Stated complaint: there's holes in my feet. Time Seen by Provider: 11/23/23 18:22 Source: patient and old records reviewed Mode of arrival: ambulatory Limitations: no limitations History of Present Illness HPI narrative: Patient is a 53-year-old male who presents the ED with concerned for infection to his feet. Patient reports he has holes in his feet. He reports he has been admitted here before for MRSA infection of his feet. States he has been sleeping outside and [place]. He states he has been applying deodorant to his arms and legs to avoid bug bites. Also c/o callouses to his hands and feet which are sometimes painful. He has not taken anything for pain. Denies fevers. 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 Patient has hx of methamphetamine abuse. Related Data Allergies Allergy/AdvReac Type Severity Reaction Status Date / Time No Known Allergies Allergy Verified 09/02/23 02:51 Review of Systems Review of Systems: CONSTITUTIONAL: Denies fever, chills, or sweats. SKIN: See HPI MUSCULOSKELETAL: See HPI NEUROLOGIC: Denies headache, dizziness, numbness, or weakness. All systems reviewed & are unremarkable except as noted in HPI and below PMFSH Social History Social History Smoking status: Current every day smoker Tobacco type: cigarettes Alcohol intake: former Substance use type: marijuana, amphetamines and painkillers Do You Feel Safe in your Home?: No Lack of Transportation: YES Lack of Food: Often True Current Housing: I Do Not Have Housing Concerned About Future Housing: YES Difficulty Paying Gas/Electric Bills: YES Difficulty Paying for Meds: YES Currently Unemployed: YES Education: High School Diploma/GED Difficulty w/ Childcare or Family Care: No Spiritual care concerns: No Exam Narrative: GENERAL: Mildly unkempt appearing, obese with BMI of 30.8, non-toxic, in no acute distress. HEAD: Normocephalic, atraumatic. RESPIRATORY: Airway patent, respirations nonlabored. CARDIOVASCULAR: Regular rate and rhythm. Pedal pulses intact. MUSCULOSKELETAL: Moves all extremities. No gross deformities. SKIN: Warm, dry, normal color. various calluses to fingers and distal tips of several toes. Scattered areas of tenderness. Tinea pedis changes to several toes bilaterally and web spaces. Left 1st toenail with fungal changes. No subungual hematoma. No drainage. No erythema, warmth, fluctuance, blister formation to hands or feet. Sensation intact throughout hands and feet. Capillary refill intact. Dirt and debris under finger nails. NEURO: A&O X3. Speech clear. Cranial nerves II-XII grossly intact. Steady gait. No ataxic movements. PSYCHIATRIC: Rapid, pressured speech, tangential thoughts. Course Vital Signs Vital signs: Vital Signs Temperature 98.0 F 11/23/23 16:31 Pulse Rate 80 11/23/23 16:31 Respiratory Rate 16 11/23/23 16:31 Blood Pressure 154/86 H 11/23/23 16:31 Pulse Oximetry 100 11/23/23 16:31 Oxygen Delivery Room Air 11/23/23 16:31 Temperature 98.0 F 11/23/23 16:31 Pulse Rate 80 11/23/23 16:31 Respiratory Rate 16 11/23/23 16:31 Blood Pressure 154/86 H 11/23/23 16:31 Pulse Oximetry 100 11/23/23 16:31 Oxygen Delivery Room Air 11/23/23 16:31 MDM - Skin/Abscess/Foreign Bdy MDM Narrative Medical decision making narrative: Patient presented to ED with concern for infection to bilateral feet. History of cellulitis. Vital signs stable. Afebrile. No systemic signs of infection. Exam consistent with tinea pedis, onychomycosis. No evidence of cellulitis, infection, abscess. Discussed management of each, will prescribe topical fungal treatments. Will refer to Podiatry fo
[2023-11-23] MEDS: ACETAMINOPHEN 500 MG TABLET 1000 MG PO (19:34)
== END 2023-11-23 19:40 | disposition home or self-care (01) ==
PROVIDERS: Emergency Provider Physician Assistant; PCP Internal Medicine
DX: B35.3 Tinea pedis (principal); B35.1 Tinea unguium; F17.210 Nicotine dependence, cigarettes, uncomplicated
CPT/HCPCS: 99283; A9270

== ENCOUNTER 2023-12-04 03:56 | Emergency (ER) | payer BC, SELFPAY ==
--- NOTE | ~2023-12-04 | XR_ITS ---
Right foot Technique: AP, oblique, and lateral views were obtained. Clinical History: Pain Findings: No acute fracture or dislocation is seen. Prior ORIF of calcaneal fracture with extensive o rthopedic hardware present.. There is probable moderate degenerative change of the talonavicular harriet culation and subtalar joint. Soft tissues are unremarkable. Impression: No acute abnormality. Prior calcaneal ORIF with probable degenerative change of the subtalar joint and talar navicular join t. Reviewed, dictated and finalized at location M. Impression: No acute abnormality. Prior calcaneal ORIF with probable degenerative change of the subtalar joint an d talar navicular joint.
[2023-12-04 03:53] VITALS: BP 147/81; PULSE 77; RESP 16; TEMP 36.7; O2SAT 99
--- NOTE | 2023-12-04 05:23 | ED.GENADULT ---
HPI - General Adult General Chief complaint: Extremity Injury, Lower Stated complaint: Foot pain x 1 week Time Seen by Provider: 12/04/23 04:20 History of Present Illness HPI narrative: Patient 53-year-old gentleman who presents emergency department with chief complaint of pain to lower extremities. Patient is wearing a tracking bracelet for probation and reports that he has had some irritation in his left ankle. The patient also reports that he has a blister in his left great toe and reports that he has another area of irritation on his right foot. The patient denies fever denies new trauma Related Data Allergies Allergy/AdvReac Type Severity Reaction Status Date / Time No Known Allergies Allergy Verified 09/02/23 02:51 Review of Systems Review of Systems: A 10 system review of systems was completed on the patient and is negative except for what is stated in the HPI. Nursing and ancillary documentation was reviewed. [facility] Social History Social History Smoking status: Current every day smoker Tobacco type: cigarettes Alcohol intake: former Substance use type: marijuana, amphetamines and painkillers Do You Feel Safe in your Home?: No Lack of Transportation: YES Lack of Food: Often True Current Housing: I Do Not Have Housing Concerned About Future Housing: YES Difficulty Paying Gas/Electric Bills: YES Difficulty Paying for Meds: YES Currently Unemployed: YES Education: High School Diploma/GED Difficulty w/ Childcare or Family Care: No Spiritual care concerns: No Exam Narrative: GENERAL: Well-appearing, well-nourished, and in no acute distress. HEAD: Normocephalic, atraumatic. EYES: PERRLA and EOMI. ENT: Nares clear, no rhinorrhea or epistaxis. Mucous membranes moist. NECK: Supple. CHEST: Clear to auscultation. No respiratory distress. HEART: Regular rate and rhythm. No murmur heard. Normal peripheral pulses. ABDOMEN: Soft, nontender, nondistended, normal active bowel sounds. EXTREMITIES: Normal range of motion. No edema. There is a blister present to the left great toe there is soft tissue irritation left ankle at the location of the ankle bracelet he SKIN: Warm, dry, no rash. NEURO: No focal deficits. Alert and oriented x3. PSYCH: Normal mood and affect. Course Vital Signs Vital signs: Vital Signs Temperature 36.7 C 12/04/23 03:53 Pulse Rate 77 12/04/23 03:53 Respiratory Rate 16 12/04/23 03:53 Blood Pressure 147/81 H 12/04/23 03:53 Pulse Oximetry 99 12/04/23 03:53 Oxygen Delivery Room Air 12/04/23 03:53 Temperature 36.7 C 12/04/23 03:53 Pulse Rate 77 12/04/23 03:53 Respiratory Rate 16 12/04/23 03:53 Blood Pressure 147/81 H 12/04/23 03:53 Pulse Oximetry 99 12/04/23 03:53 Oxygen Delivery Room Air 12/04/23 03:53 Medical Decision Making Vital Signs Vital Signs: Vital Signs Temperature 36.7 C 12/04/23 03:53 Pulse Rate 77 12/04/23 03:53 Respiratory Rate 16 12/04/23 03:53 Blood Pressure 147/81 H 12/04/23 03:53 Pulse Oximetry 99 12/04/23 03:53 Oxygen Delivery Room Air 12/04/23 03:53 Temperature 36.7 C 12/04/23 03:53 Pulse Rate 77 12/04/23 03:53 Respiratory Rate 16 12/04/23 03:53 Blood Pressure 147/81 H 12/04/23 03:53 Pulse Oximetry 99 12/04/23 03:53 Oxygen Delivery Room Air 12/04/23 03:53 Discharge Plan Discharge Clinical Impression: Blister (nonthermal), left great toe, initial encounter, Abrasion of ankle, left Patient Disposition: Home, Self-Care Condition: Stable Instructions: Antibiotic Form, Abrasion (ED), Blister (ED) Prescriptions: No Action clotrimazole 1 % solution 1 applic topical BID 14 Days Qty: 30 0RF efinaconazole 10 % solution with applicator 1 applic topical DAILY Qty: 4 0RF clindamycin HCl 150 mg Capsule 300 mg PO Q6HR Qty: 19 0RF Follow-up/Referrals:
== END 2023-12-04 05:44 | disposition home or self-care (01) ==
PROVIDERS: Emergency Provider Emergency Medicine; PCP Internal Medicine
DX: S90.512A Abrasion, left ankle, initial encounter (principal); S90.422A Blister (nonthermal), left great toe, initial encounter; L98.8 Other specified disorders of the skin and subcutaneous tissue; F17.210 Nicotine dependence, cigarettes, uncomplicated; X58.XXXA Exposure to other specified factors, initial encounter
CPT/HCPCS: 73630; 99284

== ENCOUNTER 2024-01-14 12:56 | Emergency (ER) | payer BC, SELFPAY ==
[2024-01-14 13:02] VITALS: BP 141/94; PULSE 122; RESP 16; TEMP 36.3; O2SAT 99
[2024-01-14 13:07] VITALS: BP 159/79; PULSE 122; RESP 16; TEMP 36.6; O2SAT 96
--- NOTE | 2024-01-14 14:27 | ED.GENADULT ---
HPI - General Adult General Chief complaint: Unspecified Stated complaint: infection to hand and feet Time Seen by Provider: 01/14/24 13:14 History of Present Illness HPI narrative: Patient is a 53-year-old male who presents ER acting slightly abnormally. Patient appears anxious redness told several different versions as to why he is here today. For me he indicates that he is here because he has a rash to bilateral forearms which is actually present. Red line urine paretic. He thinks he contacted some poison jese. He also reports that he is needing a place to wash his feet. He is currently using a nail clipper to clean his toenails. Patient is also reported that he would like a phone so he can try to contact when the counselors that he has a business card for. There is no SI or HI. Denies drug use. 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 Related Data Allergies Allergy/AdvReac Type Severity Reaction Status Date / Time No Known Allergies Allergy Verified 01/14/24 15:06 Review of Systems Constitutional: Constitutional: Reports no additional constitutional complaints Cardiovascular: Cardiovascular: Reports no additional cardiovascular complaints Respiratory: Respiratory: Reports no additional respiratory complaints Musculoskeletal: Musculoskeletal: Reports no additional musculoskeletal complaints Integumentary/Breasts: Skin/Breast: Reports pruritus, Reports erythema and Reports rash PMFSH Past Medical History Medical History (Updated 01/14/24 @ 15:15 by Portillo Cueva MD) Methamphetamine abuse Rhabdomyolysis Social History Social History Smoking status: Current every day smoker Tobacco type: cigarettes Alcohol intake: former Substance use type: marijuana, amphetamines and painkillers Do You Feel Safe in your Home?: No Lack of Transportation: YES Lack of Food: Often True Current Housing: I Do Not Have Housing Concerned About Future Housing: YES Difficulty Paying Gas/Electric Bills: YES Difficulty Paying for Meds: YES Currently Unemployed: YES Education: High School Diploma/GED Difficulty w/ Childcare or Family Care: No Spiritual care concerns: No Exam Narrative: GENERAL: Well-appearing, well-nourished, and in no acute distress. HEAD: Normocephalic, atraumatic. ENT: Mucous membranes moist. CHEST: Clear to auscultation. No respiratory distress. HEART: Tachycardic regular. Normal peripheral pulses. EXTREMITIES: Normal range of motion. No edema. SKIN: Warm, dry, linear scratches and raised rash consistent with contact dermatitis. No vesicles or weeping. NEURO: Alert and oriented x3. PSYCH: Mildly anxious but no SI/HI. Course Course Emergency Course: Suspect patient may be under the influence of methamphetamine. He would only like to be cared for his rash at this time. He does not feel like we need to contact any crisis workers for him. He has been using her phone to talk to a significant other. Discharged with prednisone. Vital Signs Vital signs: Vital Signs Temperature 97.3 F L 01/14/24 13:02 Pulse Rate 122 H 01/14/24 13:02 Respiratory Rate 16 01/14/24 13:02 Blood Pressure 141/94 H 01/14/24 13:02 Pulse Oximetry 99 01/14/24 13:02 Oxygen Delivery Room Air 01/14/24 13:02 Temperature 97.9 F 01/14/24 13:07 Pulse Rate 122 H 01/14/24 13:07 Respiratory Rate 16 01/14/24 13:07 Blood Pressure 159/79 H 01/14/24 13:07 Pulse Oximetry 96 01/14/24 13:07 Oxygen Delivery Room Air 01/14/24 13:07 Medical Decision Making Vital Signs Vital Signs: Vital Signs Temperature 97.3 F L 01/14/24 13:02 Pulse Rate 122 H 01/14/24 13:02 Respiratory Rate 16 01/14/24 13:02 Blood Pressure 141/94 H 01/14/24 13:02 Pulse Oximetry 99 01/14/24 13:02 Oxygen Delivery Room Air 01/14/24 13:02 Temperature 97.9 F 01/14/24 13:07 Pulse Rate 122 H 0
[2024-01-14] MEDS: HYDROCORTISONE 1% 30 GM CREAM 1 APPLIC TOPICAL (15:18)
== END 2024-01-14 15:24 | disposition home or self-care (01) ==
PROVIDERS: Emergency Provider Emergency Medicine; PCP Internal Medicine
DX: L25.9 Unspecified contact dermatitis, unspecified cause (principal); F17.210 Nicotine dependence, cigarettes, uncomplicated
CPT/HCPCS: 99283; A9270